=== PATIENT | female | born 1970 | race African-American/Black ===

== ENCOUNTER 2024-11-18 20:28 | Observation (INO) ==
[2024-11-18] MEDS ORDERED: ASPIRIN 81 MG TAB.CHEW ONE (20:50)
[2024-11-18] MEDS ORDERED: METHYLPREDNISOLONE SOD SUCC/PF 125 MG/2 ML VIAL ONE (20:50)
[2024-11-18] MEDS ORDERED: NITROGLYCERIN 1 GM OINT...G. TD ONE (20:50)
[2024-11-18] MEDS: METHYLPREDNISOLONE SOD SUCC/PF 125 MG/2 ML VIAL IVP ONE (20:51)
[2024-11-18] MEDS: ASPIRIN 81 MG TAB.CHEW PO ONE (20:51)
[2024-11-18] MEDS: NITROGLYCERIN 1 GM OINT...G. TD ONE (20:51)
--- NOTE | 2024-11-18 20:51 | Emergency Department Note ---
HPI - General Adult General Chief complaint: SOB -Shortness of Breath Stated complaint: SOB Time Seen by Provider: 11/18/24 20:40 Source: patient Mode of arrival: walk-in Limitations: no limitations History of Present Illness HPI narrative: This is a 54 year old female patient that presents to the ER with c/o SOB, and chest tightness today. patient denies any back pain, abdominal pain, numbness, tingling, weakness or N/V/D Onset (ago): hour(s) (1) Location: Reports chest Radiation: Reports non-radiation Severity: mild Quality: Reports aching Pain Consistency: Reports constant Relieving factors: Reports none Exacerbating factors: Reports none Associated symptoms: Reports chest pain and shortness of breath Treatments prior to arrival: Reports none Related Data Previous Rx's Medication Instructions Recorded cyclobenzaprine 10 mg tablet 10 mg PO TID PRN muscle s pasm #10 07/11/24 tabs Allergies Allergy/AdvReac Type Severity Reaction Status Date / Time levofloxacin (From Levaquin) Allergy Mild Verified 11/18/24 20:59 metoclopramide (From Reglan) Allergy Mild Verified 11/18/24 20:59 tramadol Allergy Mild Verified 11/18/24 20:59 iv dye Allergy Mild Uncoded 11/18/24 20:59 Review of Systems Status of ROS 10 or more systems reviewed and unremark able except as noted in history and below Constitutional Denies: fever, chills, change in weight, fatigue, malaise or night sweats Eyes Denies: change in vision, blurry vision, blind spots or light sensitivity Ears, nose, mouth, and throat Denies: throat pain, neck pain, throat swelling, difficulty swallowing, hoarseness, mouth pain or swelling of lips/tongue Cardiovascular Reports: chest pain, shortness of breath with exertion and shortness of breath when lying down; Denies: palpitations, edema, swelling of feet/ankles, lightheadedness, leg pain with exertion or bluish discoloration of hands/feet Respiratory Reports: shortness of breath; Denies: cough, wheezing, stridor, pain on inspiration, change in phlegm color or coughing up blood Gastrointestinal Denies: abdominal pain, nausea, vomiting, coffee grounds in vomit or heartburn Genitourinary Denies: painful urination, urinary frequency, urinary urgency, urinary incontinence, blood in urine or difficulty voiding Musculoskeletal Denies: back pain, neck pain, extremity pain, extremity swelling, joint pain, limited range of motion or joint swelling Integumentary/Breast Denies: rash, itching, redness, skin pain, skin tenderness, skin swelling or sores Neurological Denies: headache, numbness in extremities, weakness in extremities, lack of coordination, dizziness, vertigo, confusion, behavioral changes, slurred speech, difficulty communicating thoughts, seizure-like ac tivity or involuntary movements Psychiatric Denies: anxiety, mood swings, panic attacks, change in sleep pattern, hopelessness, loss of interest or irritability Endocrine Denies: excessive urination, excessive thirst, fatigue, cold intolerance, excessive sweating or flushing Hematologic/Lymphatic Denies: easy bruising, easy bleeding or enlarged lymph nodes Allergic/Immunologic Denies: hives, throat swelling, tongue swelling, facial swelling or wheezing PFSH PFSH Medical History High cholesterol Diabetes Hypertension Surgical History History of back surgery Hx of hernia repair Hx of cholecystectomy History of appendectomy History of hysterectomy Social History Smoking status: never smoker Within the past year, how often did you have a drink containing alcohol: never Score interpretation: A score less than 3 is consistent with normal alcohol consumption. Feel stressed/tense/nervous/anxious/difficulty sleeping: not at all Life stressor details: n/a Exam Constitutional: normal general appearance and no apparent distress Vital Signs - 24 hr 11/18/24 20:33 11/18/24 20:51 11/18/24 21:14 Temperature 98.2 F Pulse Rate 96 H Respiratory Rate 20 Blood Pressure 104/84 207/116 Pulse Oximetry 99 99 Oxygen Delivery Me thod Room Air 11/18/24 23:04 Temperature Pulse Rate Respiratory Rate Blood Pressure 209/109 Pulse Oximetry Oxygen Delivery Me thod HENMT: normocephalic, head/scalp atraumatic, hearing grossly normal bilaterally, external ears normal, EACs normal, nasal mucous membranes normal, external nose normal, oral mucous membranes normal and oropharynx normal Eyes: PERRL, EOMs intact bilaterally, conjunctivae normal and no scleral icterus Neck/C-Spine: visual inspection normal and trachea midline Lymph: no lymphadenopathy noted Chest: inspection of chest normal and palpation of chest normal Respiratory: breath sounds equal bilaterally, normal respiratory effort, clear to auscultation bilaterally, no wheezes, no rales, no retractions, no use of accessory muscles and chest percussion normal Cardiovascular: normal heart rate noted, regular rhythm noted, no gallop, no rub, no murmur, no JVD, no clicks, peripheral pulses 2+ throughout, no bruits noted and no additional abnormal heart sounds Gastrointestinal: abdomen normal to inspection, abdomen soft to palpation, nontender to palpation, nontender to percussion, nondistended, normoactive bowel sounds, no hepatosplenomegaly, no masses, no pulsatile mass, no ascites and no hernia Genitourinary: no CVA tenderness Back/Pelvis: spine normal to inspection Extremities: normal to inspection, normal to palpation, no tenderness, full ROM, no joint enlargement and no deformity 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 No s/s of acute distress noted Vital Signs Vital signs: Vital Signs Temperature 98.2 F 11/18/24 20:33 Pulse Rate 96 H 11/18/24 20:33 Respiratory Rate 20 11/18/24 20:33 Blood Pressure 104/84 11/18/24 20:33 Pulse Oximetry 99 11/18/24 20:33 Oxygen Delivery Method Room Air 11/18/24 20:33 Temperature 98.2 F 11/18/24 20:33 Pulse Rate 96 H 11/18/24 20:33 Respiratory Rate 20 11/18/24 20:33 Blood Pressure 209/109 11/18/24 23:04 Pulse Oximetry 99 11/18/24 21:14 Oxygen Delivery Method Room Air 11/18/24 20:33 Medical Decision Making Differential Diagnosis Differential Diagnosis: viral illness Medical Records Medical records reviewed: Yes I reviewed the patient's medical records Lab Data Lab results reviewed: Yes I reviewed the patient's lab results Labs: Lab Results 11/18/24 Range/Units 21:40 WBC 8.7 (4.3-9.3) K/uL RBC 3.5 L (4.00-5.50) M/uL Hgb 9.9 L (12.5-15.8) gm/dL Hct 30.9 L (35.9-46.7) % MCV 87.1 (81.0-93.7) fl MCH 27.8 (27.6-32.2) pg MCHC 31.9 L (33.1-35.3) g/dl RDW 15.4 H (11.4-14.2) % Plt Count 226 (152-353) K/uL MPV 9.0 (6.9-10.8) fl Gran % 46.5 L (47.8-71.3) % Lymph % (Auto) 41.6 (20.0-43.0) % [place] % (Auto) 6.5 (3.6-9.8) % Eos % (Auto) 4.4 H (0.4-2.8) % Baso % (Auto) 1.0 H (0.1-0.85) Lymph # (Auto) 3.6 H (1.1-3.1) [place] # (Auto) 0.6 L (1.1-3.1) Eos # (Auto) 0.4 H (0.0-0.2) Baso # (Auto) 0.1 (0.0-0.1) Absolute Gran (auto) 4.0 (2.3-6.0) Sodium 138 (136-145) mmol/L Potassium 3.6 (3.6-5.2) mmol/L Chloride 103.0 (98-107) mmol/L Carbon Dioxide 25 (21-32) mmol/L Anion Gap 10.0 (4-14) mEq/L BUN 13 (7-18) mg/dL Creatinine 0.6 (0.6-1.3) mg/dL Estimated GFR 107.3 (>59.9) Glucose 233 H (70-110) mg/dL Calcium 8.8 (8.5-10.1) mg/dL Total Bilirubin 0.40 (0.0-1.0) mg/dL AST 18 (15-37) U/L ALT 17 L (30-65) U/L Alkaline Phosphatase 94 (50-136) U/L Troponin I High Sens (4.0-60.4) ng/L B-Natriuretic Peptide 43.3 (0-100) pg/mL Total Protein 6.4 (6.4-8.2) g/dL Albumin 3.3 L (3.4-5.0) g/dL Imaging Data Chest x-ray: Attestation: I personally reviewed and interpreted this imaging study as follows: My impression: cxr: negative ECG Data Attestation: I have reviewed the pertinent ECG results. Discharge Plan Discharge Patient Disposition: Admitted As Observation Condition: Stable Clinical Impression: Chest pain, HTN (hypertension), Dyspnea Time of Disposition: 23:31
[2024-11-18] MEDS ORDERED: IPRATROPIUM/ALBUTEROL SULFATE 3 ML AMPUL.NEB INH ONE (20:56)
[2024-11-18] MEDS: IPRATROPIUM/ALBUTEROL SULFATE 3 ML AMPUL.NEB INH ONE (21:13)
[2024-11-18] MEDS ORDERED: ONDANSETRON HCL/PF 4 MG/2 ML VIAL ONE (21:39)
[2024-11-18] MEDS ORDERED: MORPHINE SULFATE 2 MG/ML CARTRIDGE IV ONE (21:39)
[2024-11-18] MEDS: ONDANSETRON HCL/PF 4 MG/2 ML VIAL IVP ONE (21:40)
[2024-11-18] MEDS: MORPHINE SULFATE 2 MG/ML CARTRIDGE IV ONE (21:40)
[2024-11-18 21:56] LABS: Basophils #(Absolute) Auto 0.1 (0.0-0.1); Eosinophils#(Absolute)Auto 0.4 (0.0-0.2); Eosinophils%(Percent) Auto 4.4 % (0.4-2.8); Granulocytes % - Auto 46.5 % (47.8-71.3); Hematocrit 30.9 % (35.9-46.7); Mean Corpuscular Volume 87.1 fl (81.0-93.7); Monocytes #(Absolute)- Auto 0.6 (1.1-3.1); Monocytes %(Percent)- Auto 6.5 % (3.6-9.8); Platelet Count 226 K/uL (152-353); White Blood Count 8.7 K/uL (4.3-9.3)
[2024-11-18] MEDS ORDERED: cloNIDine HCL 0.1 MG TABLET PO ONE (23:02)
[2024-11-18] MEDS: cloNIDine HCL 0.1 MG TABLET PO ONE (23:04)
[2024-11-18 23:16] LABS: Potassium 3.6 mmol/L (3.6-5.2)
[2024-11-19] MEDS ORDERED: MORPHINE SULFATE 2 MG/ML CARTRIDGE IV ONE (01:18)
[2024-11-19] MEDS: MORPHINE SULFATE 2 MG/ML CARTRIDGE IV ONE ×3 (01:21→09:20)
[2024-11-19] MEDS ORDERED: ACETAMINOPHEN 500 MG TABLET PO PRN (01:46)
[2024-11-19] MEDS ORDERED: MAGNESIUM, ALUMINUM HYDROXIDE 30 ML ORAL.SUSP PO PRN (01:46)
[2024-11-19] MEDS ORDERED: DOCUSATE SODIUM 100 MG CAPSULE PO PRN (01:46)
[2024-11-19] MEDS: DICYCLOMINE HCL 10 MG/ML AMPUL IM SCH (04:04)
[2024-11-19 06:58] LABS: Basophils #(Absolute) Auto 0.1 (0.0-0.1); Basophils%(Percent) Auto 0.4 (0.1-0.85); Eosinophils%(Percent) Auto 0.1 % (0.4-2.8); Granulocytes % - Auto 86.1 % (47.8-71.3); Granulocytes#(Absolute)- Auto 11.1 (2.3-6.0); Hematocrit 33.3 % (35.9-46.7); Mean Corpuscular Volume 87.5 fl (81.0-93.7); Monocytes #(Absolute)- Auto 0.1 (1.1-3.1); Monocytes %(Percent)- Auto 0.9 % (3.6-9.8); Platelet Count 144 K/uL (152-353); White Blood Count 12.9 K/uL (4.3-9.3)
[2024-11-19 07:39] LABS: Potassium 4.2 mmol/L (3.6-5.2)
[2024-11-19] MEDS: FAMOTIDINE 20 MG TABLET PO SCH (09:19)
[2024-11-19] MEDS: ONDANSETRON HCL/PF 4 MG/2 ML VIAL INJ PRN (11:59)
[2024-11-19] MEDS: METOCLOPRAMIDE HCL 10 MG in 0.9 % SODIUM CHLORIDE 50 ML IVP SCH (11:59)
--- NOTE | 2024-11-19 11:59 | History & Physical Report ---
H&P: HPI History of Present Illness Chief complaint: SOB Narrative: This is a 54 year old female patient that presents to the ER with c/o SOB, and chest tightness today. patient denies any back pain, abdominal pain, numbness, tingling, weakness or N/V/D Review of Systems Status of ROS 10 or more systems reviewed and unremark able except as noted in history and below Constitutional Denies: fever, chills, change in weight, fatigue, malaise or night sweats Eyes Denies: change in vision, blurry vision, blind spots or light sensitivity Ears, nose, mouth, and throat Denies: throat pain, neck pain, throat swelling, difficulty swallowing, hoarseness, mouth pain, swelling of lips/tongue or vertigo Cardiovascular Reports: chest pain, shortness of breath with exertion and shortness of breath when lying down; Denies: palpitations, edema, swelling of feet/ankles, lightheadedness, leg pain with exertion or bluish discoloration of hands/feet Respiratory Reports: shortness of breath; Denies: cough, wheezing, stridor, pain on inspiration, change in phlegm color or coughing up blood Gastrointestinal Denies: abdominal pain, nausea, vomiting, coffee grounds in vomit, heartburn or difficulty swallowing Genitourinary Denies: painful urination, urinary frequency, urinary urgency, urinary incontinence, blood in urine or difficulty voiding Musculoskeletal Denies: back pain, neck pain, extremity pain, extremity swelling, joint pain, limited range of motion or joint swelling Integumentary/Breast Denies: rash, itching, redness, skin pain, skin tenderness, skin swelling or sores Neurological Denies: headache, numbness in extremities, weakness in extremities, lack of coordination, dizziness, vertigo, confusion, behavioral changes, slurred speech, difficulty communicating thoughts, seizure-like activity or involuntary movements Psychiatric Denies: anxiety, mood swings, panic attacks, change in sleep pattern, hopelessness, loss of interest or irritability Endocrine Denies: excessive urination, excessive thirst, fatigue, cold intolerance, excessive sweating or flushing Hematologic/Lymphatic Denies: easy bruising, easy bleeding or enlarged lymph nodes Allergic/Immunologic Denies: hives, throat swelling, tongue swelling, facial swelling or wheezing [facility] Medical History (Updated 11/19/24 @ 11:58 by Marnie Polo DO) GERD with esophagitis Gastroparesis Anemia Patient's noncompliance with other medical treatment and regimen for other reason Type 2 diabetes mellitus with hyperglycemia High cholesterol Diabetes Hypertension Surgical History History of back surgery Hx of hernia repair Hx of cholecystectomy History of appendectomy History of hysterectomy Social History Smoking status: never smoker Within the past year, how often did you have a drink containing alcohol: never Score interpretation: A score less than 3 is consistent with normal alcohol consumption. Problems where you live: no known problems Highest level of school completed/degree received: College Feel stressed/tense/nervous/anxious/difficulty sleeping: not at all Life stressor details: n/a Meds Home Medications and Allergies Home Medications Medication Instructions Recorded Confirmed Type cyclobenzaprine 10 mg tablet 10 mg PO TID PRN muscle s pasm #10 07/11/24 11/19/24 Rx tabs amlodipine 10 mg tablet 10 mg PO QAM 11/19/24 History carvedilol 25 mg tablet 25 mg PO Q12H 11/19/2411/19 History clonidine HCl 0.1 mg tablet 0.1 mg PO Q8H PRN hyperten sive 11/19/24 11/19/24 History emergency folic acid 1 mg tablet 1 mg PO DAILY 11/19/2411/19 History gabapentin 800 mg tablet 800 mg PO TID 11/19/2411/19 History hydralazine 50 mg tablet 50 mg PO Q8H 11/19/24 History insulin glargine 100 unit/mL 40 unit subcut BEDTIME 11/19/24 History subcutaneous solution (Lantus U-100 Insulin) insulin regular human 100 unit/mL 11/19/24 History injection solution (Novolin R Regular U-100 Insulin) pantoprazole 40 mg tablet,delayed 40 mg PO BID 5 11/19/24 History release (Protonix) Allergies Allergy/AdvReac Type Severity Reaction Status Date / Time levofloxacin (From Levaquin) Allergy Mild Verified 11/18/24 20:59 metoclopramide (From Reglan) Allergy Mild Verified 11/18/24 20:59 tramadol Allergy Mild Verified 11/18/24 20:59 iv dye Allergy Mild Uncoded 11/18/24 20:59 Exam Constitutional: abnormal general appearance (disheveled) and (chronically ill), no apparent distress, abnormal body habitus (obese), no limitations and alert Vital Signs - 24 hr 11/18/24 20:33 11/18/24 20:51 11/18/24 21:04 Temperature 98.2 F Pulse Rate 96 H 89 Pulse Rate [Bilate ral] Respiratory Rate 20 18 Blood Pressure 104/84 207/116 207/116 Blood Pressure [Ri ght Arm] Pulse Oximetry 99 97 Oxygen Delivery Me thod Room Air Room Air Oxygen Flow Rate Fraction of Inspir ed Oxygen 11/18/24 21:14 11/18/24 21:23 11/18/24 21:50 Temperature Pulse Rate 89 Pulse Rate [Bilate ral] Respiratory Rate 18 Blood Pressure 201/98 197/100 Blood Pressure [Ri ght Arm] Pulse Oximetry 99 96 Oxygen Delivery Me thod Room Air Oxygen Flow Rate Fraction of Inspir ed Oxygen 11/18/24 22:31 11/18/24 23:01 11/18/24 23:04 Temperature Pulse Rate 88 94 H Pulse Rate [Bilate ral] Respiratory Rate 18 18 Blood Pressure 219/112 209/109 209/109 Blood Pressure [Ri ght Arm] Pulse Oximetry 98 98 Oxygen Delivery Me thod Room Air Room Air Oxygen Flow Rate Fraction of Inspir ed Oxygen 11/19/24 00:36 11/19/24 01:29 11/19/24 01:49 Temperature Pulse Rate 95 H 88 Pulse Rate [Bilate ral] Respiratory Rate 18 18 Blood Pressure 196/98 179/100 Blood Pressure [Ri ght Arm] Pulse Oximetry 95 98 Oxygen Delivery Me thod Room Air Room Air Oxygen Flow Rate Fraction of Inspir ed Oxygen 11/19/24 03:53 11/19/24 04:00 11/19/24 08:00 Temperature 98.0 F 97.8 F Pulse Rate Pulse Rate [Bilate ral] 93 H 99 H Respiratory Rate 21 20 Blood Pressure Blood Pressure [Ri ght Arm] 196/102 200/96 Pulse Oximetry 96 98 96 Oxygen Delivery Me thod Nasal Cannula Room Air Room Air Oxygen Flow Rate 2 Fraction of Inspir ed Oxygen 28 HENMT: normocephalic, head/scalp atraumatic, hearing grossly normal bilaterally, external ears normal, EACs normal, nasal mucous membranes normal, external nose normal, oral mucous membranes normal, oropharynx normal and gingiva abnormal Eyes: PERRL, EOMs intact bilaterally, conjunctivae normal, no scleral icterus, papilledema noted and periorbital findings normal Neck/C-Spine: visual inspection normal, trachea midline, cervical spine n ontender, supple, no meningeal signs, thyroid normal and no carotid bruits Lymph: no lymphadenopathy noted Chest: inspection of chest normal and palpation of chest normal Respiratory: breath sounds equal bilaterally, normal respiratory effort, clear to auscultation bilaterally, no wheezes, no rales, no retractions, no use of accessory muscles and chest percussion normal Cardiovascular: normal heart rate noted, regular rhythm noted, no gallop, no rub, no murmur, no JVD, no clicks, peripheral pulses 2+ throughout, no bruits noted and no additional abnormal heart sounds Gastrointestinal: abdomen normal to inspection, abdomen soft to palpation, n ontender to palpation, nontender to percussion, nondistended, normoactive bowel sounds, no hepatosplenomegaly, no masses, no pulsatile mass, no ascites and no hernia Genitourinary: no CVA tenderness Back/Pelvis: spine abnormal to inspection, no thoracic spine tenderness, lumbar spine tenderness noted, thoracic spine ROM abnormal and lumbar spine ROM abnormal Extremities: normal to inspection, normal to palpation, no tenderness, full ROM, joint enlargement noted and no deformity Neurology: inspector process II-XII intact, no movement abnormality noted, no focal motor deficit noted, sensory deficit noted, gait abnormality noted, speech normal, coordination normal, no pronator drift noted, no fasciculations noted and GCS normal Psychiatry: Mental Status Exam documented within this Exam's Psych section mental status grossly normal, oriented x3, thought process abnormality noted, cooperative, affect normal, psychomotor activity normal and memory normal Feel stressed/tense/nervous/anxious/difficulty sleeping: not at all Skin: skin color normal, no rash, no lesions, no ecchymosis noted, no wounds, no lacerations, skin turgor abnormal, no jaundice, no petechiae, no mottling, nails abnormality noted and no alopecia Assessment and Plan Assessment and Plan (1) Hypertensive urgency, malignant: Code(s): I16.0 - Hypertensive urgency (2) Chest pain: Qualifiers: Chest pain type: other chest pain Qualified Code(s): R07.89 - Other chest pain Code(s): R07.9 - Chest pain, unspecified (3) Type 2 diabetes mellitus with hyperglycemia: Qualifiers: Diabetes mellitus group home insulin use: 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 Qualified Code(s): E11.65 - Type 2 diabetes mellitus with hyperglycemia; Z79.4 - [facility] (current) use of insulin Code(s): E11.65 - Type 2 diabetes mellitus with hyperglycemia (4) Patient's noncompliance with other medical treatment and regimen for other reason: Code(s): Z91.198 - Patient's noncompliance with other medical treatment and regimen for other reason (5) High cholesterol: Code(s): E78.00 - Pure hypercholesterolemia, unspecified (6) Hypertension: Qualifiers: Hypertension type: primary hypertension Qualified Code(s): I10 - Essential (primary) hypertension Code(s): I10 - Essential (primary) hypertension (7) Anemia: Qualifiers: Anemia type: other cause Other causes of anemia: other cause, not classified Qualified Code(s): D64.89 - Other specified anemias Code(s): D64.9 - Anemia, unspecified (8) Thrombocytosis: Code(s): D75.839 - Thrombocytosis, unspecified (9) Hypoalbuminemia: Code(s): E88.09 - Other disorders of plasma-protein metabolism, not elsewhere classified (10) Gastroparesis: Code(s): K31.84 - Gastroparesis (11) GERD with esophagitis: Qualifiers: Esophagitis bleeding: without hemorrhage Qualified Code(s): K21.00 - Gastro-esophageal reflux disease with esophagitis, without bleeding Code(s): K21.00 - Gastro-esophageal reflux disease with esophagitis, without bleeding Plan cautious hydration NPO for now start lquids as tollerated Hydralazine 50 mg po bid losartan plasencia norvasc 10 mg po daily coreg 25 mg po bid cardiac and continous pulsoximetry Results Labs Labs: CBC 11/18/24 11/19/24 Range/Units 21:40 05:55 WBC 8.7 12.9 H (4.3-9.3) K/uL RBC 3.5 L 3.8 L (4.00-5.50) M/uL Hgb 9.9 L 10.5 L (12.5-15.8) gm/dL Hct 30.9 L 33.3 L (35.9-46.7) % Plt Count 226 144 L (152-353) K/uL Gran % 46.5 L 86.1 H (47.8-71.3) % Lymph % (Auto) 41.6 12.5 L (20.0-43.0) % [place] % (Auto) 6.5 0.9 L (3.6-9.8) % Eos % (Auto) 4.4 H 0.1 L (0.4-2.8) % Baso % (Auto) 1.0 H 0.4 (0.1-0.85) Lymph # (Auto) 3.6 H 1.6 (1.1-3.1) [place] # (Auto) 0.6 L 0.1 L (1.1-3.1) Eos # (Auto) 0.4 H 0.0 (0.0-0.2) Baso # (Auto) 0.1 0.1 (0.0-0.1) Absolute Gran (auto) 4.0 11.1 H (2.3-6.0) CMP 11/18/24 11/19/24 21:40 05:55 Sodium 138 138 Potassium 3.6 4.2 Chloride 103.0 102.0 Carbon Dioxide 25 27 BUN 13 17 Creatinine 0.6 0.9 Glucose 233 H 341 H Calcium 8.8 9.0 Liver Function 11/18/24 Range/Units 21:40 Total Bilirubin 0.40 (0.0-1.0) mg/dL AST 18 (15-37) U/L ALT 17 L (30-65) U/L Alkaline Phosphatase 94 (50-136) U/L Albumin 3.3 L (3.4-5.0) g/dL Pulse Oximetry Attestation: I have reviewed the pertinent pulse oximetry results. ECG Attestation: I have reviewed the pertinent ECG results. Prior ECG tracings: available for review Interpretation: EKG-sinus rhythm, left ventricular hypertrophy, rate 98, RR 612, MS 167 Imaging Imaging ordered: Chest x-ray Radiologist's impression: FRONTAL VIEW CHEST X-RAY HISTORY: Chest pain COMPARISON: 08/17/2024 FINDINGS: The left chest port is in stable position. No focal consolidation is seen. The heart size is within normal limits. The mediastinum is unremarkable. There is no evidence of pleural effusion or gross pneumothorax. The trachea is midline. IMPRESSION: No focal consolidation is seen. The heart size is normal.
[2024-11-19] MEDS: AMLODIPINE BESYLATE 5 MG TABLET PO SCH (12:00)
[2024-11-19] MEDS: HYDRALAZINE HCL 25 MG TABLET PO SCH (12:00)
[2024-11-19] MEDS: carvediloL 25 MG TABLET PO SCH (12:00)
[2024-11-19] MEDS: GABAPENTIN 400 MG CAPSULE PO SCH (15:10)
[2024-11-19] MEDS: KETOROLAC 30 MG/ML INJ VIAL IVP PRN (18:33)
[2024-11-19] MEDS: INSULIN GLARGINE-YFGN 100 UNIT/ML INSULN.PEN SUBQ SCH (21:04)
[2024-11-19] MEDS: PANTOPRAZOLE SODIUM 40 MG TABLET.DR PO SCH (21:05)
[2024-11-20 05:43] LABS: Basophils #(Absolute) Auto 0.1 (0.0-0.1); Basophils%(Percent) Auto 0.6 (0.1-0.85); Eosinophils#(Absolute)Auto 0.1 (0.0-0.2); Eosinophils%(Percent) Auto 1.1 % (0.4-2.8); Granulocytes % - Auto 62.5 % (47.8-71.3); Granulocytes#(Absolute)- Auto 7.7 (2.3-6.0); Hematocrit 31.1 % (35.9-46.7); Monocytes #(Absolute)- Auto 0.7 (1.1-3.1); Monocytes %(Percent)- Auto 5.7 % (3.6-9.8); Platelet Count 223 K/uL (152-353); White Blood Count 12.3 K/uL (4.3-9.3)
[2024-11-20 06:48] LABS: Potassium 3.4 mmol/L (3.6-5.2)
[2024-11-20 08:24] VITALS: RESP 19
[2024-11-20] MEDS: FOLIC ACID 1 MG TABLET PO SCH (09:04)
[2024-11-20 12:00] VITALS: BP 170/86; PULSE 78; TEMP 97.9
[2024-11-20] MEDS: LOSARTAN POTASSIUM 50 MG TABLET PO SCH (13:33)
[2024-11-20] MEDS: MAGNESIUM OXIDE 400 MG TABLET PO ONE (13:33)
[2024-11-20] MEDS: POTASSIUM CHLORIDE 20 MEQ TAB.ER.PRT PO ONE (13:33)
--- NOTE | 2024-11-20 14:59 | Discharge Summary ---
DS: Providers Provider Date of admission: 11/18/24 23:36 Primary care physician: Zandra Covington Admitting clinician: Kaitlin Verdin Attending physician on admission: Marnie Polo Attending physician on discharge: Marnie Polo Discharging clinician: Marnie Polo Anticipated date of discharge: 11/20/24 DS: Diagnosis Discharge Diagnosis (1) Hypertensive urgency, malignant: (2) Chest pain: Qualifiers: Chest pain type: other chest pain Qualified Code(s): R07.89 - Other chest pain (3) Type 2 diabetes mellitus with hyperglycemia: Qualifiers: Diabetes mellitus halfway insulin use: with halfway use Qualified Code(s): E11.65 - Type 2 diabetes mellitus with hyperglycemia; Z79.4 - terminal gauger (current) use of insulin (4) Patient's noncompliance with other medical treatment and regimen for other reason: (5) High cholesterol: (6) Hypertension: Qualifiers: Hypertension type: primary hypertension Qualified Code(s): I10 - Essential (primary) hypertension (7) Anemia: Qualifiers: Anemia type: other cause Other causes of anemia: other cause, not classified Qualified Code(s): D64.89 - Other specified anemias (8) Thrombocytosis: (9) Hypoalbuminemia: (10) Gastroparesis: (11) GERD with esophagitis: Qualifiers: Esophagitis bleeding: without hemorrhage Qualified Code(s): K21.00 - Gastro-esophageal reflux disease with esophagitis, without bleeding DS: Summary Hospital Course Hospital Course: 2331: due to patients risk factors, chest pain, Past medical hx will admit patient to the medical floor for further evaluation and treatment. No s/s of acute distress noted. refused reglan secondary to history of tardive dyskinesias. Patient BP improved with IV medication and the resumption of her home BP medications maintained BP although still elevated so added losartan back to patient as she states it was stopped with the doctor added the coreg 25 mg po bid. Patient BP improved to 150's systolic and diastolic in the 80's and patient reported she felt better. tolerated food and although bowel sounds remained sluggish prior to discharge. Status at Discharge Functional status at discharge: independent ambulation Overall status at discharge: patient is back to baseline Time Spent with Patient Time attestation: Total time spent providing and/or coordinating discharge services: 38 Time spent: greater than 30 minutes Exam Constitutional: abnormal general appearance (chronically ill), no apparent distress, abnormal body habitus (obese), no limitations and alert Vital Signs - 24 hr 11/19/24 16:00 11/19/24 20:00 11/19/24 23:45 Temperature 98.0 F 98.2 F 98.0 F Pulse Rate Pulse Rate [Bilate ral] 90 86 82 Respiratory Rate 19 21 19 Blood Pressure Blood Pressure [Ri ght Arm] 179/99 178/87 147/92 Pulse Oximetry 96 96 97 Oxygen Delivery Me thod Room Air Room Air Room Air 11/19/24 23:46 11/20/24 03:57 11/20/24 08:00 Temperature 98.0 F 97.8 F 98.5 F Pulse Rate Pulse Rate [Bilate ral] 82 78 82 Respiratory Rate 19 20 19 Blood Pressure Blood Pressure [Ri ght Arm] 147/92 148/83 145/90 Pulse Oximetry 97 96 96 Oxygen Delivery Al thod Room Air Room Air Room Air 11/20/24 09:04 11/20/24 09:04 11/20/24 09:05 Temperature Pulse Rate 82 Pulse Rate [Bilate ral] Respiratory Rate Blood Pressure 145/90 145/90 Blood Pressure [Ri ght Arm] Pulse Oximetry Oxygen Delivery Me thod 11/20/24 11:59 11/20/24 13:33 Temperature 97.9 F Pulse Rate Pulse Rate [Bilate ral] 78 Respiratory Rate 19 Blood Pressure 170/86 Blood Pressure [Ri ght Arm] 170/86 Pulse Oximetry 96 Oxygen Delivery Me thod Room Air HENMT: normocephalic, head/scalp atraumatic, hearing grossly normal bilaterally, external ears normal, EACs normal, nasal mucous membranes normal, external nose normal, oral mucous membranes normal, oropharynx normal, dentition abnormal and gingiva abnormal Eyes: PERRL, EOMs intact bilaterally, conjunctivae normal, no scleral icterus, papilledema noted and periorbital findings normal Neck/C-Spine: visual inspection normal, trachea midline, cervical spine nontender, supple, no meningeal signs, thyroid normal and no carotid bruits Lymph: no lymphadenopathy noted Chest: inspection of chest normal and palpation of chest normal Respiratory: breath sounds equal bilaterally, normal respiratory effort, clear to auscultation bilaterally, no wheezes, no rales, no retractions, no use of accessory muscles and chest percussion normal Cardiovascular: normal heart rate noted, regular rhythm noted, no gallop, no rub, no murmur, no JVD, no clicks, peripheral pulses 2+ throughout, no bruits noted and no additional abnormal heart sounds Gastrointestinal: abdomen normal to inspection, abdomen soft to palpation, nontender to palpation, nontender to percussion, nondistended, normoactive bowel sounds, no hepatosplenomegaly, no masses, no pulsatile mass, no ascites and no hernia Genitourinary: no CVA tenderness and bladder normal to palpation Back/Pelvis: spine abnormal to inspection, no thoracic spine tenderness, lumba r spine tenderness noted, thoracic spine ROM abnormal and lumbar spine ROM abnormal Extremities: normal to inspection, normal to palpation, no tenderness, full ROM, joint enlargement noted and no deformity 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, no movement abnormality noted, no focal motor deficit noted, sensory deficit noted, gait abnormality noted, speech normal, coordination normal, no pronator drift noted, no fasciculations noted and GCS normal Psychiatry: Mental Status Exam documented within this Exam's Psych section mental status grossly normal, oriented x3, thought process normal, cooperative, affect normal, psychomotor activity normal and memory normal Feel stressed/tense/nervous/anxious/difficulty sleeping: not at all Skin: skin color normal, no rash, no lesions, no ecchymosis noted, no wounds, no lacerations, skin turgor normal, no jaundice, no petechiae, no mottling, nails abnormality noted and no alopecia DS: Data Data Completed and Pending Labs on day of discharge: Labs from last 24 hours 11/20/24 05:31 WBC 12.3 H RBC 3.6 L Hgb 9.9 L Hct 31.1 L MCV 86.0 MCH 27.5 L MCHC 32.0 L RDW 15.5 H Plt Count 223 MPV 9.4 Gran % 62.5 Lymph % (Auto) 30.1 [place] % (Auto) 5.7 Eos % (Auto) 1.1 Baso % (Auto) 0.6 Lymph # (Auto) 3.7 H [place] # (Auto) 0.7 L Eos # (Auto) 0.1 Baso # (Auto) 0.1 Absolute Gran (auto) 7.7 H Sodium 140 Potassium 3.4 L Chloride 101.0 Carbon Dioxide 28 Anion Gap 11.0 BUN 19 H Creatinine 1.0 Estimated GFR 67.4 Glucose 195 H Calcium 9.0 Phosphorus 5.0 H Magnesium 1.6 L Total Bilirubin 0.79 AST 14 L ALT 20 L Alkaline Phosphatase 83 Total Protein 6.5 Albumin 2.9 L TSH 3.23 Discharge Plan Discharge Disposition: Home, Self-Care Condition: Improved Discharge Medications: New losartan 100 mg tablet 100 mg PO DAILY Qty: 30 0RF Continued cyclobenzaprine 10 mg tablet 10 mg PO TID PRN (Reason: muscle spasm) Qty: 10 0RF Rx Instructions: Take 1 tablet up to 3 times per day as needed for muscle spasms and pain amlodipine 10 mg tablet 10 mg PO QAM Patient Comments: TAKE ONE TABLET BY MOUTH EVERY DAY FOR htn carvedilol 25 mg tablet 25 mg PO Q12H clonidine HCl 0.1 mg tablet 0.1 mg PO Q8H PRN (Reason: hypertensive emergency) Patient Comments: TAKE ONE TABLET BY MOUTH THREE TIMES DAILY NEEDED sbp >160 & dbp > 90 folic acid 1 mg tablet 1 mg PO DAILY Patient Comments: TAKE ONE TABLET BY MOUTH EVERY DAY skip ON DAY of MTX gabapentin 800 mg tablet 800 mg PO TID Patient Comments: TAKE ONE TABLET BY MOUTH THREE TIMES DAILY hydralazine 50 mg tablet 50 mg PO Q8H insulin glargine [Lantus U-100 Insulin] 100 unit/mL solution 40 unit SUBCUT BEDTIME Patient Comments: INJECT 40 UNITS SUBCUTANEOUSLY AT BEDTIME DAILY Novolin R Regular U100 Insulin 100 unit/mL solution Patient Comments: INJECT 40 UNITS SUBCUTANEOUSLY TWICE DAILY Rx Instructions: PER PT'S SLIDING SCALE pantoprazole [Protonix] 40 mg tablet,delayed release (DR/EC) 40 mg PO BID Discharge Orders: Discharge Order (Routine); Ordered 11/20/24 Ordered By: Marnie Polo Activity: increase activity as tolerated Diet: low fat, low cholesterol, low salt diet and other Interventions: Discharge Assessment Last Done: 11/20/24 15:03 MED/SURG & ICU Observation Charge Sheet Last Done: 11/20/24 15:05 Patient Instructions: Diabetic Gastroparesis (DC), Hypertension and Diabetes (DC) Activity Restrictions/Additional Instructions: Increase exercise and work on weight loss safely with a gastroparesis needs small frequent meals BP and pulse journal to go back with her to her PCP along with blood sugar journal Make adjustments to medication depending on what the Journal states of her follow-up Needs follow-up with cardiology as well as GI medicine Forms: Portal/Health Info Access Inst Follow-Ups: Zandra Covington [Primary Care Provider, Medical] Discharge Date/Time: 11/20/24 15:31
[2024-11-20 15:14] LABS: Urine Appearance CLEAR (CLEAR); Urine Blood NEGATIVE (NEG - TRACE); Urine Urobilinogen Normal (NORMAL)
[2024-11-20 15:15] LABS: Urine Color AMBER (STRAW/YELL.)
[2024-11-20] MEDS ORDERED: HEPARIN SODIUM,PORCINE/PF 500 UNIT/5 ML SYRINGE INJ ONE (15:15)
== END 2024-11-20 15:31 | disposition home or self-care (01) ==
LOC: MS 20:28 → ED 20:28 → MS 11-19 01:31
PROVIDERS: ADMIT Nurse Practitioner Family; ATTEND Family Medicine